=== PATIENT | female | born 1940 | race Caucasian/White ===

== ENCOUNTER 2016-12-22 13:18 | Emergency (ER) | payer MEDICARE ==
--- NOTE | 2016-12-22 13:41 | ER Document Report ---
ED Medical Screen (RME) - General Stated Complaint: LEG PAIN Notes: 76 yo female c/o pain, swelling and warmth to left medial upper thigh progressively worsening over past week. interfering with walking and sleeping. + hx/o DVT. reports some clotting abnormality. no chest pain or shortness of breath. no recent trauma, no recent travel, no recent surgery. discussed with Dr Amin. recommended D Dimer and Doppler TRAVEL OUTSIDE OF THE [place] IN LAST 30 DAYS: No - Related Data Allergies/Adverse Reactions: No Known Allergies Allergy (Unverified 12/22/16 13:34) Physical Exam - Vital signs Vitals: Temp Pulse Resp BP Pulse Ox 98.0 F 79 18 182/91 H 94 12/22/16 13:30 12/22/16 13:30 12/22/16 13:30 12/22/16 13:30 12/22/16 13:30 Course - Vital Signs Vital signs: Temp Pulse Resp BP Pulse Ox 98.0 F 79 18 182/91 H 94 12/22/16 13:30 12/22/16 13:30 12/22/16 13:30 12/22/16 13:30 12/22/16 13:30
[2016-12-22 13:58] LABS: ABSOLUTE BASOPHILS # (AUTO) 0.1 10^3/uL (0.0-0.2); ABSOLUTE EOSINOPHILS # (AUTO) 0.3 10^3/uL (0.0-0.6); ABSOLUTE MONOCYTES (AUTO) 0.6 10^3/uL (0.1-1.4); ABSOLUTE NEUT (AUTO) 3.4 10^3/uL (1.7-8.2); BASOPHILS % (AUTO) 0.8 % (0-2); EOSINOPHILS % (AUTO) 4.1 % (0-6); HEMATOCRIT 44.5 % (36.0-47.0); HEMOGLOBIN 14.8 g/dL (12.0-15.5); HGB HCT DIFFERENCE -0.1; LYMPHOCYTES % (AUTO) 41.1 % (13-45); MEAN CORPUSCULAR HGB CONC 33.3 g/dL (32.0-36.0); MEAN CORPUSCULAR VOLUME 90 fl (80-97); MONOCYTES % (AUTO) 8.5 % (3-13); RED BLOOD COUNT 4.96 10^6/uL (3.72-5.28); RED CELL DISTRIBUTION WIDTH 12.8 % (11.5-14.0); SEGMENTED NEUTROPHILS % (AUTO) 45.5 % (42-78); WHITE BLOOD COUNT 7.4 10^3/uL (4.0-10.5)
[2016-12-22 14:02] LABS: APPEARANCE,URINE SLIGHTLY-CLOUDY; BILIRUBIN,URINE NEGATIVE (NEGATIVE); GLUCOSE, URINE NEGATIVE (NEGATIVE); KETONES,URINE NEGATIVE (NEGATIVE); LEUKOCYTE ESTERASE,URINE NEGATIVE (NEGATIVE); NITRITE,URINE NEGATIVE (NEGATIVE); PROTEIN,URINE NEGATIVE (NEGATIVE); URINE SPECIFIC GRAVITY 1.006; UROBILINOGEN,URINE NEGATIVE mg/dL (<2.0)
[2016-12-22 14:03] LABS: PROTHROMBIN TIME 12.8 SEC (11.4-15.4)
[2016-12-22 14:06] LABS: D-DIMER 0.88 ug/mL (0.00-0.50)
[2016-12-22 14:10] LABS: ALANINE AMINOTRANSFERASE 23 U/L (9-52); ALBUMIN 4.3 g/dL (3.5-5.0); ALKALINE PHOSPHATASE 84 U/L (38-126); ANION GAP 10 (5-19); ASPARTATE AMINO TRANSFERASE 22 U/L (14-36); BILIRUBIN,TOTAL 0.8 mg/dL (0.2-1.3); BLOOD UREA NITROGEN 24 mg/dL (7-20); CARBON DIOXIDE 27 mmol/L (22-30); CHLORIDE 105 mmol/L (98-107); CREATININE RESULT 0.69 mg/dL (0.52-1.25); GLUCOSE 98 mg/dL (75-110); POTASSIUM 4.4 mmol/L (3.6-5.0); SODIUM 142.1 mmol/L (137-145); TOTAL PROTEIN 7.1 g/dL (6.3-8.2)
--- NOTE | 2016-12-22 16:42 | ER Document Report ---
ED Extremity Problem, Lower - General Chief Complaint: Leg Pain Stated Complaint: LEG PAIN Time seen by provider: 16:36 Mode of Arrival: Ambulatory Information source: Patient Notes: This is a 76-year-old female with a history of DVT (1977), hypoglycemia. Patient presents with left lower extremity pain. Patient states she's been having pain on the anterior and posterior left thigh for the past several days which is been progressively getting worse. Patient's granddaughter does state that the patient first started complaining this past summer of left lower extremity pain. She has had ultrasounds in the past (last one here in January 2016) which is showed no recurrence of deep vein clot. Patient denies any back pain. Patient denies any urinary or fecal incontinence. Patient denies any motor weakness. X-rays in January 2016 also showed bilateral hip arthritis. TRAVEL OUTSIDE OF THE [place] IN LAST 30 DAYS: No - HPI Patient complains to provider of: Pain Location: Thigh Occurred: Last week Where: Home Onset/Duration: Gradual Quality of pain: Dull Severity: Moderate Pain Level: 3 Context: denies: Barefoot, Burn, Crush, Direct blow, Fell, Laceration, Prolonged pressure on ext, Recent immobilization, Recent surgery, Recent travel , Stubbed, Twisted, Wearing shoes, Other Recent injury: No Associated symptoms: denies: Fever, Seizure, Short of breath, Sweaty Exacerbated by: Movement Relieved by: Rest - Related Data Allergies/Adverse Reactions: No Known Allergies Allergy (Unverified 12/22/16 13:34) Past Medical History - General Information source: Patient - Social History Smoking Status: Never Smoker Chew tobacco use (# tins/day): No Frequency of alcohol use: None Drug Abuse: None Lives with: Family Family History: Reviewed & Not Pertinent Patient has suicidal ideation: No Patient has homicidal ideation: No - Past Medical History Cardiac Medical History: Reports: Hx DVT - History of DVT in the left lower extremity in 1977 Pulmonary Medical History: Reports: None EENT Medical History: Reports: None Neurological Medical History: Reports: None Endocrine Medical History: Reports: None Renal/ Medical History: Denies: Hx Peritoneal Dialysis Malignancy Medical History: Reports: None GI Medical History: Reports: None Musculoskeltal Medical History: Reports Hx Arthritis, Reports Other - Patient does have significant bilateral hip arthritis noted on hip x-rays in the past. Skin Medical History: Reports None Psychiatric Medical History: Reports: None Traumatic Medical History: Reports: Other - History of L2 fracture after fall 4 years ago. Infectious Medical History: Reports: None Past Surgical History: Reports: Hx Hysterectomy, Hx Tonsillectomy - Immunizations Hx Diphtheria, Pertussis, Tetanus Vaccination: Yes Review of Systems - Review of Systems Constitutional: denies: Chills, Fever EENT: No symptoms reported Cardiovascular: No symptoms reported. denies: Chest pain, Syncope, Edema Respiratory: No symptoms reported. denies: Hemoptysis, Short of breath, Wheezing Gastrointestinal: No symptoms reported Genitourinary: No symptoms reported Female Genitourinary: No symptoms reported Musculoskeletal: See HPI Skin: No symptoms reported Hematologic/Lymphatic: No symptoms reported Neurological/Psychological: No symptoms reported Physical Exam - Vital signs Vitals: Temp Pulse Resp BP Pulse Ox 98.0 F 79 18 182/91 H 94 12/22/16 13:30 12/22/16 13:30 12/22/16 13:30 12/22/16 13:30 12/22/16 13:30 Notes: Physical exam: GENERAL: 76-year-old female, alert and oriented 3, no acute distress. HEAD: Atraumatic, normocephalic. EYES: Pupils equal round and reactive to light, extraocular movements intact, sclera anicteric, conjunctiva are normal. ENT: TMs normal, nares patent, oropharynx clear without exudates. Moist mucous membranes. NECK: Normal range of motion, supple without lymphadenopathy or JVD. LUNGS: Breath sounds clear to auscultation bilaterally and equal. No wheezes rales or rhonchi. HEART: Regular rate and rhythm without murmurs, rubs or gallops. ABDOMEN: Soft, normoactive bowel sounds. No tenderness to palpation. No guarding, no rebound. No masses appreciated. EXTREMITIES: Normal range of motion, no pitting or edema. No clubbing or cyanosis. No popliteal swelling on the left side. The skin has no erythema or tenderness to palpation. The distal cap refill to the toes are good. The extremity is warm and appears well perfused. There is a good dorsal pedal pulse bilaterally. NEUROLOGICAL: Cranial nerves II through XII grossly intact. Normal speech, normal gait. PSYCH: Normal mood, normal affect. SKIN: Warm, Dry, normal turgor, no rashes or lesions noted. Course - Vital Signs Vital signs: Temp Pulse Resp BP Pulse Ox 98.2 F 74 16 135/79 H 92 12/22/16 16:47 12/22/16 16:47 12/22/16 16:47 12/22/16 16:47 12/22/16 16:47 - Laboratory Result Diagrams: 12/22/16 13:40 12/22/16 13:40 Laboratory results interpreted by me: 12/22/16 12/22/16 12/22/16 13:20 13:40 13:40 D-Dimer 0.88 H BUN 24 H Urine Ascorbic Acid 40 H - Diagnostic Test Radiology reviewed: Image reviewed, Reports reviewed - Lower venous Doppler shows no evidence of DVT Discharge - Discharge Clinical Impression: lower extremity pain. Condition: Stable Disposition: HOME, SELF-CARE Instructions: Oral Narcotic Medication ([facility]) Additional Instructions: Recommendations: As discussed: The ultrasound today was read by Dr. Campos Florez and there was no evidence of deep vein clots. The plan would be to follow-up with Dr. Salmon tomorrow as planned. Bring a copy of today's labs with you when you go. It is recommended, that she have the ultrasound repeated in one week. Return to the emergency room at once for any chest pain or shortness of breath. He should have your blood pressure rechecked as well. Continue with your other medicines including the Naprosyn daily. Take the Percocet as needed. See the narcotic instruction sheet. Turn to the ER if he develop worsening pain, or any concerns that the pain is getting worse, any problems urinating or any problems with numbness. Prescriptions: Oxycodone HCl/Acetaminophen [Percocet 5-325 mg Tablet] 1 - 2 tab PO ASDIR PRN # 25 tablet PRN Reason: Referrals: FANNIE SALMON MD [Primary Care Provider] - Follow up as needed
[2016-12-22 16:51] VITALS: BP 135/79
--- NOTE | 2016-12-22 18:51 | XCELERA REPORT ---
[address] [address] Lower Extremity Venous Evaluation Name: ANDREW FRANCISCO Age: 76 yrs Gender: Female : 1940 Patient Status: Preadmit Patient Location: ER Study Date: 12/22/2016 03:05 PM Procedure: Color flow and duplex imaging of the veins of the left lower extremity as well as the right Common Femoral vein. Reason For Study: pain left medial upper thigh, + hx/o DVT Ordering Physician: BETHEL HA Performed By: Kenzie España Right Sided Venous Evaluation The right common femoral vein is fully compressible. Spontaneous and phasic flow is present in the right common femoral vein. Left Sided Venous Evaluation Normal vessel filling wall to wall, compression and augmentation as well as Colour flow down to the infrageniculate veins. Critical Findings Called in to the ER. Interpretation Summary No duplex evidence of DVT or obstruction in the left lower extremity nor in the right Common Femoral vein. : BETHEL HA > Kostas Florez
== END 2016-12-22 16:51 | disposition home or self-care (01) ==
LOC: ER 13:18
DX: M79.605 Pain in left leg (principal)
CPT/HCPCS: 36415; 80053; 81001; 85025; 85379; 85610; 93971; 99283

== ENCOUNTER → 2016-12-23 | Outpatient (CLI) | payer MEDICARE | LOC: OD 10:42 | PROVIDERS: ATTEND Family Medicine | DX: M79.605 Pain in left leg (principal) | CPT/HCPCS: 72100 ==

== ENCOUNTER → 2016-12-29 | Outpatient (CLI) | payer MEDICARE | LOC: SP 12:45 | PROVIDERS: ATTEND Family Medicine | DX: M79.605 Pain in left leg (principal); Z53.9 Procedure and treatment not carried out, unspecified reason ==

== ENCOUNTER → 2017-03-14 | Outpatient (CLI) | payer MEDICARE | LOC: WI 12:56 | PROVIDERS: ATTEND Family Medicine | DX: M81.0 Age-related osteoporosis without current pathological fracture (principal) | CPT/HCPCS: 77080 ==

== ENCOUNTER 2018-03-01 08:55 | Emergency (ER) | payer MEDICARE ==
[2018-03-01] MEDS ORDERED: LIDOCAINE 5% (700 MG) TRANSDERMAL ADH..PATCH TP ONE (09:52)
--- NOTE | 2018-03-01 10:41 | RADIOLOGY REPORT (SQ) ---
EXAM DESCRIPTION: L SPINE WHOLE COMPLETED DATE/TIME: 03/01/2018 10:27 am REASON FOR STUDY: back pain COMPARISON: 12/23/2016 NUMBER OF VIEWS: Five views including obliques. TECHNIQUE: AP, lateral, oblique, and sacral radiographic images acquired of the lumbar spine. LIMITATIONS: None. FINDINGS: MINERALIZATION: Normal. SEGMENTATION: Normal. No transitional anatomy. ALIGNMENT: Stable slight anterolisthesis L4-5. VERTEBRAE: Stable old compression L1, 50% loss of height anteriorly. DISCS: Multilevel disc space narrowing with osteophytes. POSTERIOR ELEMENTS: Pedicles and facets are intact. No pars defect or posterior arch defects. Facet arthropathy is present. HARDWARE: None in the spine. PARASPINAL SOFT TISSUES: Normal. PELVIS: Intact as visualized. No fractures or worrisome bone lesions. SI joints intact. OTHER: No other significant finding. IMPRESSION: Extensive arthritic changes lumbar spine. Stable old compression L1 and slight anterolisthesis L4-5. TECHNICAL DOCUMENTATION: JOB ID: [id number] [employer]- All Rights Reserved Reading location - IP/workstation name: [email or web address]
[2018-03-01 10:55] LABS: APPEARANCE,URINE SLIGHTLY-CLOUDY; BILIRUBIN,URINE NEGATIVE (NEGATIVE); COLOR,URINE YELLOW; GLUCOSE, URINE NEGATIVE (NEGATIVE); KETONES,URINE NEGATIVE (NEGATIVE); LEUKOCYTE ESTERASE,URINE NEGATIVE (NEGATIVE); NITRITE,URINE NEGATIVE (NEGATIVE); PROTEIN,URINE NEGATIVE (NEGATIVE); UROBILINOGEN,URINE NEGATIVE mg/dL (<2.0)
--- NOTE | 2018-03-01 11:07 | ER Document Report ---
ED General - General Chief Complaint: Back Pain Stated Complaint: BACK PAIN Time Seen by Provider: 03/01/18 09:36 TRAVEL OUTSIDE OF THE [place] IN LAST 30 DAYS: No - HPI Patient complains to provider of: Back pain Notes: Patient coming in for evaluation of back pain. Patient has chronic back pain has been receiving cortisone injections. Patient states mostly her pains on the right side of the spine of her back. Patient states that she has been giving injections on the left side mostly recently. Patient denies any acute trauma denies any fever chills nausea vomiting diarrhea states pain is better with heat. Denies any fevers chills nausea vomiting diarrhea dysuria. - Related Data Allergies/Adverse Reactions: Sulfa (Sulfonamide Antibiotics) Allergy (Verified 03/01/18 09:15) Past Medical History - Social History Smoking Status: Never Smoker Chew tobacco use (# tins/day): No Frequency of alcohol use: None Drug Abuse: None Family History: Reviewed & Not Pertinent Patient has suicidal ideation: No Patient has homicidal ideation: No - Past Medical History Cardiac Medical History: Reports: Hx DVT - History of DVT in the left lower extremity in 1977 Renal/ Medical History: Denies: Hx Peritoneal Dialysis Musculoskeltal Medical History: Reports Hx Arthritis Past Surgical History: Reports: Hx Hysterectomy, Hx Tonsillectomy - Immunizations Hx Diphtheria, Pertussis, Tetanus Vaccination: Yes Review of Systems - Review of Systems Constitutional: No symptoms reported EENT: No symptoms reported Cardiovascular: No symptoms reported Respiratory: No symptoms reported Gastrointestinal: No symptoms reported Genitourinary: No symptoms reported Female Genitourinary: No symptoms reported Musculoskeletal: Back pain Skin: No symptoms reported Hematologic/Lymphatic: No symptoms reported Neurological/Psychological: No symptoms reported -: Yes All other systems reviewed and negative Physical Exam - Vital signs Vitals: Temp Pulse Resp BP Pulse Ox 98.4 F 87 18 141/73 H 94 03/01/18 09:02 03/01/18 09:02 03/01/18 09:02 03/01/18 09:02 03/01/18 09:02 Interpretation: Normal - General General appearance: Appears well, Alert - HEENT Head: Normocephalic, Atraumatic Eyes: Normal Pupils: PERRL - Respiratory Respiratory status: No respiratory distress Chest status: Nontender Breath sounds: Normal Chest palpation: Normal - Cardiovascular Rhythm: Regular Heart sounds: Normal auscultation Murmur: No - Abdominal Inspection: Normal Distension: No distension Bowel sounds: Normal Tenderness: Nontender Organomegaly: No organomegaly - Back Back: Normal, Tender - Tenderness to the right paraspinal region - Extremities General upper extremity: Normal inspection, Nontender, Normal color, Normal ROM , Normal temperature General lower extremity: Normal inspection, Nontender, Normal color, Normal ROM , Normal temperature, Normal weight bearing. No: Salvador's sign - Neurological Neuro grossly intact: Yes Cognition: Normal Orientation: AAOx4 Alan Coma Scale Eye Opening: Spontaneous [place] Coma Scale Verbal: Oriented [place] Coma Scale Motor: Obeys Commands Eudora Coma Scale Total: 15 Speech: Normal Motor strength normal: LUE, RUE, LLE, RLE Sensory: Normal - Psychological Associated symptoms: Normal affect, Normal mood - Skin Skin Temperature: Warm Skin Moisture: Dry Skin Color: Normal Course - Re-evaluation Re-evalutation: 03/01/18 11:08 The patient presents with low back pain without signs of spinal cord compression , cauda equina syndrome, infection, aneurysm, or other serious etiology. The patient is neurologically intact. Given the extremely low risk of these diagnoses further testing and evaluation for these possibilities does not appear to be indicated at this time. The patient has been instructed to return if the symptoms worsen or change in any way. More likely muscle skeletal patient states most of her injections be on the left think patient more likely is ever compensating using more paraspinal muscles on the right. Patient will be given pain control discharged home. - Vital Signs Vital signs: Temp Pulse Resp BP Pulse Ox 98.4 F 87 18 141/73 H 94 03/01/18 09:02 03/01/18 09:02 03/01/18 09:02 03/01/18 09:02 03/01/18 09:02 Discharge - Discharge Clinical Impression: Acute exacerbation of chronic low back pain Condition: Good Disposition: HOME, SELF-CARE Instructions: Low Back Pain ([facility]), Oral Narcotic Medication ([facility]) Additional Instructions: Your x-ray today does not show any acute pathology. He did have significant diffuse arthritis along her spine and also a old compression fracture. Again nothing looks to be new on her x-ray. Urinalysis does not show any signs of urinary tract infection. I do believe the pain is more likely from compensation on the right side is that you have been receiving shots of the left. Would recommend following up with her ornamental painter. I will give you a prescription for some tramadol pain medication he may also take Tylenol and Motrin for pain relief return to ER symptoms worsen. Prescriptions: Tramadol HCl [Ultram 50 mg Tablet] 50 mg PO ASDIR PRN #20 tablet PRN Reason: Referrals: FANNIE YU MD [Primary Care Provider] - Follow up as needed
[2018-03-01 11:28] VITALS: BP 139/73
== END 2018-03-01 11:28 | disposition home or self-care (01) ==
LOC: ER 08:55
DX: M54.9 Dorsalgia, unspecified (principal); G89.29 Other chronic pain
CPT/HCPCS: 72110; 81001; 99283

== ENCOUNTER → 2018-05-10 | Outpatient (CLI) | payer MEDICARE ==
--- NOTE | 2018-05-10 16:03 | RADIOLOGY REPORT (SQ) ---
EXAM DESCRIPTION: CAROTID DOPPLER COMPLETED DATE/TIME: 05/10/2018 3:52 pm REASON FOR STUDY: DIZZINESS R42 DIZZINESS AND GIDDINESS COMPARISON: None. TECHNIQUE: Grayscale ultrasound, Doppler velocity and spectra, and color Doppler images acquired of the extra-cranial carotid and vertebral arteries. Images stored on PACS. LIMITATIONS: None. FINDINGS: RIGHT CAROTID CCA Velocities: Within normal limits. ICA Velocities Peak systolic 0.61 m/s. End diastolic 0.20 m/s. Proximal ICA/CCA peak systolic ratio 0.7. Spectra normal. No significant plaque. LEFT CAROTID CCA Velocities: Within normal limits. ICA Velocities Peak systolic 0.47 m/s. End diastolic 0.17 m/s. Proximal ICA/CCA peak systolic ratio 1.0. Spectra normal. No significant plaque. VERTEBRAL ARTERIES: Antegrade flow. Normal waveforms. SUBCLAVIAN ARTERIES: No finding. OTHER: No other significant finding. IMPRESSION: NO HEMODYNAMICALLY SIGNIFICANT STENOSIS. COMMENT: Quality ID #[id number]: Velocity criteria are extrapolated from the diameter data as defined by t he Society of Radiologists in Ultrasound Consensus Conference. Radiology 2003: 229; 340-346. TECHNICAL DOCUMENTATION: JOB ID: [id number] [employer]- All Rights Reserved Reading location - IP/workstation name: [email or web address]
== END ==
LOC: SP 12:44
PROVIDERS: ATTEND Family Medicine
DX: R42 Dizziness and giddiness (principal)
CPT/HCPCS: 93880

== ENCOUNTER → 2018-05-30 | Outpatient (CLI) | payer MEDICARE ==
--- NOTE | 2018-05-30 10:30 | RADIOLOGY REPORT (SQ) ---
EXAM DESCRIPTION: CT ABD/PELVIS NO ORAL OR IV COMPLETED DATE/TIME: 05/30/2018 9:43 am REASON FOR STUDY: LOWER ABDOMINAL PAIN R10.30 LOWER ABDOMINAL PAIN, UNSPECIFIED COMPARISON: None. TECHNIQUE: CT scan of the abdomen and pelvis performed without intravenous or oral contrast. Images reviewed with lung, soft tissue, and bone windows. Reconstructed coronal and sagittal MPR images revi ewed. All images stored on PACS. All CT scanners at this facility use dose modulation, iterative reconstruction, and/or weight based d osing when appropriate to reduce radiation dose to as low as reasonably achievable (ALARA). [facility]: Dose Right [facility]: CareDose [facility]: Dose Right [facility]: Teradose 4D [facility]: Micronotes RADIATION DOSE: CT Rad equipment meets quality standard of care and radiation dose reduction techniq ues were employed. CTDIvol: 5.0 mGy. DLP: 230 mGy-cm.mGy. LIMITATIONS: None. FINDINGS: LOWER CHEST: No significant findings. No nodules or infiltrates. NON-CONTRASTED LIVER, SPLEEN, ADRENALS: Evaluation limited by lack of IV contrast. No identified sign ificant masses. PANCREAS: No masses. No peripancreatic inflammatory changes. GALLBLADDER: No identified stones by CT criteria. No inflammatory changes to suggest cholecystitis. RIGHT KIDNEY AND URETER: No suspicious masses. Assessment limited by lack of IV contrast. No signif icant calcifications. No hydronephrosis or hydroureter. LEFT KIDNEY AND URETER: No suspicious masses. Assessment limited by lack of IV contrast. No signifi cant calcifications. No hydronephrosis or hydroureter. AORTA AND RETROPERITONEUM: No aneurysm. There is some ectasia of the abdominal aorta with vascular c alcifications. No retroperitoneal masses or adenopathy. BOWEL AND PERITONEAL CAVITY: No obvious masses or inflammatory changes. No free fluid. APPENDIX: Normal. PELVIS, BLADDER, AND ABDOMINAL WALL:No abnormal masses. No free fluid. Bladder normal. BONES: Degenerative changes are identified with grade 1 anterolisthesis of L4 in relation to L 5. Th ere is approximately 75% compression of the L1 vertebra and compression of the superior endplate of t he L2 vertebra which are age indeterminate OTHER: No other significant finding. IMPRESSION: NO SIGNIFICANT OR ACUTE PROCESS IN THE ABDOMEN OR PELVIS. COMMENT: Quality ID # [id number]: Final reports with documentation of one or more dose reduction techniques (e.g., Automated exposure control, adjustment of the mA and/or kV according to patient size, use of iterative reconstruction technique) TECHNICAL DOCUMENTATION: JOB ID: [id number] [email or web address]- All Rights Reserved Reading location - IP/workstation name: [email or web address]
== END ==
LOC: RAD 09:24
PROVIDERS: ATTEND Family Medicine
DX: R10.30 Lower abdominal pain, unspecified (principal)
CPT/HCPCS: 74176

== ENCOUNTER → 2018-06-28 | Outpatient (CLI) | payer MEDICARE ==
--- NOTE | 2018-06-29 08:41 | RADIOLOGY REPORT (SQ) ---
EXAM DESCRIPTION: MRI LUMBAR SPINE WITHOUT COMPLETED DATE/TIME: 06/28/2018 5:08 pm REASON FOR STUDY: SPINAL STENOSIS, LUMBAR REGION WITH NEUROGENIC CLAUDICATION M48.062 SPINAL STENOS IS, LUMBAR REGION WITH NEUROGENIC KASANDRA COMPARISON: CT abdomen pelvis 05/30/2018 Lumbar spine plain films 03/01/2018, 12/23/2016 TECHNIQUE: Sagittal and Axial imaging includes T1, T2, STIR and gradient echo sequences. Coronal T2/ HASTE imaging. LIMITATIONS: None. FINDINGS: VISUALIZED UPPER ABDOMEN: Benign left lower pole kidney parapelvic cysts. SEGMENTATION: No transitional anatomy. The lowest well-developed disc space is labeled L5-S1. ALIGNMENT: Mild grade 1 anterolisthesis of L4 over L5 VERTEBRAE: Chronic appearing 50% anterior wedge compression of L1 without marrow edema. BONE MARROW: Normal. No marrow replacement or reactive changes. DISC SIGNAL: Diffuse decreased T2 weighted intervertebral disc signal. POSTERIOR ELEMENTS: Generally intact. No pars defect evident. HARDWARE: None in the spine. CORD AND CONUS: Normal in size and signal intensity. Conus at the L1 level. SOFT TISSUES: No aortic aneurysm seen. No bulky retroperitoneal adenopathy or mass. No paraspinal mas s or fluid. T11-12: Mild bilateral facet hypertrophy borderline central canal narrowing and mild bilateral adrianna inal narrowing. T12-L1: Unremarkable L1-L2: Mild bilateral facet hypertrophy. Minimal posterior disc bulging. Borderline central canal n arrowing. Mild bilateral foraminal narrowing. L2-L3: Moderate bilateral facet hypertrophy. No central or foraminal encroachment. L3-L4: Mild diffuse posterior disc bulge, bulky bilateral facet hypertrophy. Borderline central doug l narrowing. Very mild bilateral inferior foraminal narrowing without exiting L3 nerve root impingem ent. L4-L5: Grade 1 anterolisthesis of L4 over L5 is present with mild posterior diffuse disc bulge and ve ry bulky bilateral facet and ligament hypertrophy. Mild central canal narrowing with flattening of t he thecal sac into a triangular shape. No significant foraminal stenosis. L5-S1: Minimal posterior disc bulging, mild bilateral facet hypertrophy. No central or foraminal enc roachment. SACRUM: Visualized upper sacrum intact. OTHER: No other significant findings. IMPRESSION: Chronic 50% L1 compression deformity Degenerative grade 1 anterolisthesis at L4-5 with mild central canal narrowing TECHNICAL DOCUMENTATION: JOB ID: [id number]- All Rights Reserved Reading location - IP/workstation name: [email or web address]
== END ==
LOC: RAD 16:18
PROVIDERS: ATTEND Physician Assistant
DX: M48.062 Spinal stenosis, lumbar region with neurogenic claudication (principal)
CPT/HCPCS: 72148

== ENCOUNTER 2018-08-01 05:49 | Day surgery (SDC) | payer MEDICARE ==
[2018-07-28 12:19] LABS: HEMATOCRIT 42.6 % (36.0-47.0); HEMOGLOBIN 14.4 g/dL (12.0-15.5); MEAN CORPUSCULAR HGB CONC 33.8 g/dL (32.0-36.0); MEAN CORPUSCULAR VOLUME 92 fl (80-97); PLATELET COUNT 322 10^3/uL (150-450); RED BLOOD COUNT 4.64 10^6/uL (3.72-5.28); RED CELL DISTRIBUTION WIDTH 13.4 % (11.5-14.0)
[2018-07-28 12:46] LABS: ANION GAP 9 (5-19); BLOOD UREA NITROGEN 25 mg/dL (7-20); CALCIUM 9.9 mg/dL (8.4-10.2); CARBON DIOXIDE 27 mmol/L (22-30); CHLORIDE 104 mmol/L (98-107); GLUCOSE 96 mg/dL (75-110); POTASSIUM 4.4 mmol/L (3.6-5.0); SODIUM 139.9 mmol/L (137-145)
--- NOTE | 2018-07-28 20:53 | EKG REPORT ---
SEVERITY:- ABNORMAL ECG - SINUS RHYTHM PROBABLE LEFT ATRIAL ABNORMALITY LEFT ANTERIOR FASCICULAR BLOCK : Confirmed by: Nia West MD 28-Jul-2018 20:53:07
[~2018-08-01 05:49] MED LIST: CEFAZOLIN 1 GM/D5W RTU 1 GM/50 ML RTUPB IV ONE; CEFAZOLIN 1 GM/D5W RTU 1 GM/50 ML RTUPB IV PRN; LACTATED RINGERS 1000 ML IV PRN; LIDOCAINE 0.5% INJ-PF (5 MG/ML) 50 ML SDV SUBCUT PRN
[2018-08-01 06:30] LABS: HEMOGLOBIN 15.4 g/dL (12.0-15.5); MEAN CORPUSCULAR HEMOGLOBIN 31.2 pg (27.0-33.4); MEAN CORPUSCULAR HGB CONC 34.1 g/dL (32.0-36.0); MEAN CORPUSCULAR VOLUME 91 fl (80-97); PLATELET COUNT 326 10^3/uL (150-450); RED BLOOD COUNT 4.93 10^6/uL (3.72-5.28); RED CELL DISTRIBUTION WIDTH 13.3 % (11.5-14.0); WHITE BLOOD COUNT 11.6 10^3/uL (4.0-10.5)
[2018-08-01 06:41] LABS: APPEARANCE,URINE CLEAR; BILIRUBIN,URINE NEGATIVE (NEGATIVE); COLOR,URINE STRAW; GLUCOSE, URINE NEGATIVE (NEGATIVE); KETONES,URINE NEGATIVE (NEGATIVE); LEUKOCYTE ESTERASE,URINE NEGATIVE (NEGATIVE); NITRITE,URINE NEGATIVE (NEGATIVE); PROTEIN,URINE NEGATIVE (NEGATIVE); URINE SPECIFIC GRAVITY 1.011; UROBILINOGEN,URINE NEGATIVE mg/dL (<2.0)
[2018-08-01 06:41] LABS: INTERNATIONAL RATION (INR) 0.83; PARTIAL THROMBOPLASTIN TIME 26.5 SEC (23.5-35.8); PROTHROMBIN TIME 11.8 SEC (11.4-15.4)
[2018-08-01] MEDS ORDERED: FENTANYL CITRATE INJ/PF 100 MCG/2 ML AMPUL ONE (06:42)
[2018-08-01] MEDS ORDERED: PROPOFOL INJ 200 MG/20 ML VIAL IV ONE (06:43)
[2018-08-01] MEDS ORDERED: MIDAZOLAM 2 MG/2 ML INJ ONE (06:43)
[2018-08-01] MEDS ORDERED: BUPIVACAINE HCL 0.25% /EPINEPHRINE INJ/PF 30 ML SDV ONE ×2 (07:43→07:59)
[2018-08-01] MEDS ORDERED: TRIAMCINOLONE ACETONIDE INJ 40 MG/1 ML VIAL ONE (07:43)
[2018-08-01] MEDS ORDERED: LIDOCAINE 1% INJ-PF (10 MG/ML) 30 ML SDV ONE ×2 (07:43→07:59)
[2018-08-01] MEDS ORDERED: CEFAZOLIN 1 GM/D5W RTU 1 GM/50 ML RTUPB IV ONE (08:11)
[2018-08-01] MEDS ORDERED: FAMOTIDINE INJ/PF 20 MG/2 ML SDV IV ONE (08:13)
[2018-08-01] MEDS ORDERED: MEPERIDINE HCL/PF INJ 25 MG/1 ML DISP.SYRIN IV PRN (08:44)
[2018-08-01] MEDS ORDERED: ONDANSETRON HCL INJ/PF 4 MG/2 ML SDV IV PRN (08:44)
[2018-08-01] MEDS ORDERED: FENTANYL CITRATE INJ/PF 100 MCG/2 ML AMPUL IV PRN ×2 (08:44)
[2018-08-01] MEDS ORDERED: PROMETHAZINE HCL INJ 25 MG/1 ML VIAL IV PRN (08:44)
[2018-08-01] MEDS ORDERED: DIPHENHYDRAMINE HCL 50 MG/ML VIAL IV PRN (08:44)
[2018-08-01] MEDS ORDERED: OXYCODONE-ACETAMINOPHEN 5-325 MG TABLET PO PRN ×2 (08:44→09:29)
[2018-08-01] MEDS ORDERED: CEFAZOLIN INJ 1 GM VIAL ONE (09:15)
[2018-08-01] MEDS ORDERED: ACETAMINOPHEN 1,000 MG/100 ML RTUPB IV ONE (09:32)
--- NOTE | 2018-08-01 10:13 | OPERATIVE REPORT E ---
Operative Report NAME: ANDREW FRANCISCO : 1940 AGE: 77Y DATE OF SURGERY: 08/01/2018 ROOM: PREOPERATIVE DIAGNOSIS: LUMBAR SPINAL STENOSIS WITH NEUROGENIC CLAUDICATION. POSTOPERATIVE DIAGNOSIS: LUMBAR SPINAL STENOSIS WITH NEUROGENIC CLAUDICATION. OPERATION: Spinal procedure at L4-5 with epidural steroid injection. SURGEON: YO ROBLES M.D. OVEN UNLOADER: None. ANESTHESIA: MAC COMPLICATIONS: None. PROCEDURE: After obtaining informed consent, advising the patient of the risks and benefits including serious neurological injury, allergy of contrast, bleeding, infection, paralysis, aggravation of pain, headache, infection, and , and further allergic reaction to the steroid. She was taken to the operating room and placed comfortably in the prone position after verbally consenting and writing a full informed consent. She was taken to the operating room and placed comfortably in the prone position. Monitors were applied per Anesthesia. She was assessed visually and verbally for comfort. She was then prepped with chlorhexidine followed by a sterile drape. Fluoroscopy was used to evaluate the spine and L4-5 target space was identified. Using an epidural needle, after anesthetizing with 1% lidocaine, to enter at the midline at L4-5 level. An epidurogram was performed with spread superiorly with minimal inferior spread and limitation of the L4-5 level. Landmarks were identified and suitable track was determined for placement of the MILD instrumentation. Beginning on the left side, a small incision was made after local anesthetic of 1% lidocaine was applied. This was repeated on the right side at the selected entrance level. The MILD instrumentation trocar was then advanced through the small incision down to the lamina of the L4-L5 level on the left. Multiple x-ray were taken, particularly the oblique and AP to ensure satisfactory midline and depth. A small amount of additional local anesthetic, 1% lidocaine 2 mL, was instilled through the trocar. The bone rongeur was then utilized for removal of the lamina and ligament at the level on the left in the superior and inferior regions. A tissue sculptor was then utilized for removing additional tissue. Improvement of the contrast spread was noted inferiorly. This procedure was then repeated on the right side as described above. Again, additional improvement in the contrast spread was noted even though there was some reduction and spread at the L3-4 level as visualized on the right. Overall again, additional improvement at the L4-5 level appears variable as shown resolving some of the spinal stenosis. The epidural needle with 80 mg of Kenalog was then inserted. All instruments removed. The region was cleaned, Steri-Strips were placed followed by sterile dressings. The patient was then taken to the PACU for further postoperative care and monitoring. DICTATING PHYSICIAN: YO ROBLES M.D. [id number] PHY#: [id number] ID: [id number] JOB#: [id number] ACCT: [id number] cc:YO ROBLES M.D. >
[2018-08-01 11:12] VITALS: BP 122/89
--- NOTE | 2018-08-01 12:08 | RADIOLOGY REPORT (SQ) ---
EXAM DESCRIPTION: NO CHG FLUORO; L SPINE 2 VIEWS COMPLETED DATE/TIME: 08/01/2018 11:05 am REASON FOR STUDY: MILD COMPARISON: MRI lumbar spine 06/28/2018, CT abdomen pelvis 05/30/2018 FLUOROSCOPY TIME: 7.5 minutes 28 digital radiographic Images saved to PACS LIMITATIONS: None. PROCEDURE: Intra procedural imaging and fluoro during pain management procedure performed by Dr. Barrett loya. FINDINGS: Intra procedural imaging and fluoro during pain management procedure performed by Dr. Jon er IMPRESSION: Intra procedural imaging and fluoro COMMENT: PQRS 6045F: Fluoroscopy time of the procedure is documented in the report. TECHNICAL DOCUMENTATION: JOB ID: [id number] [employer]- All Rights Reserved Reading location - IP/workstation name: [email or web address]
--- NOTE | 2018-08-01 12:08 | RADIOLOGY REPORT (SQ) ---
EXAM DESCRIPTION: NO CHG FLUORO; L SPINE 2 VIEWS COMPLETED DATE/TIME: 08/01/2018 11:05 am REASON FOR STUDY: MILD COMPARISON: MRI lumbar spine 06/28/2018, CT abdomen pelvis 05/30/2018 FLUOROSCOPY TIME: 7.5 minutes 28 digital radiographic Images saved to PACS LIMITATIONS: None. PROCEDURE: Intra procedural imaging and fluoro during pain management procedure performed by Dr. Barrett loya. FINDINGS: Intra procedural imaging and fluoro during pain management procedure performed by Dr. Jon er IMPRESSION: Intra procedural imaging and fluoro COMMENT: PQRS 6045F: Fluoroscopy time of the procedure is documented in the report. TECHNICAL DOCUMENTATION: JOB ID: [id number] [employer]- All Rights Reserved Reading location - IP/workstation name: [email or web address]
[2018-08-01] MEDS ORDERED: DEXAMETHASONE SOD PHOSPHATE INJ 4 MG/1 ML VIAL ONE (14:00)
== END 2018-08-01 11:05 | disposition home or self-care (01) ==
LOC: OROUT 05:49
PROVIDERS: ATTEND Student in an Organized Health Care Education/Training Program
DX: M48.062 Spinal stenosis, lumbar region with neurogenic claudication (principal); Z00.6 Encounter for examination for normal comparison and control in clinical research program; J45.20 Mild intermittent asthma, uncomplicated; Z79.01 Long term (current) use of anticoagulants; Z79.899 Other long term (current) drug therapy; Z88.2 Allergy status to sulfonamides; Z91.041 Radiographic dye allergy status; I69.844 Monoplegia of lower limb following other cerebrovascular disease affecting left non-dominant side
CPT/HCPCS: 93005; 36415 ×2; 85027 ×2; 85610; 85730; 80048; 81001; 72100; 93010; 0275T; Q9966; J2250; J3490 ×3; J0690 ×2; J1100; J3010; J2704; S0028; J0131; 630

== ENCOUNTER → 2018-10-25 | Outpatient (CLI) | payer MEDICARE ==
[2018-10-25 09:28] LABS: INTERNATIONAL RATION (INR) 2.96; PROTHROMBIN TIME 32.2 SEC (11.4-15.4)
[2018-10-25 09:29] LABS: PARTIAL THROMBOPLASTIN TIME 47.7 SEC (23.5-35.8)
== END ==
LOC: LAB 08:42
PROVIDERS: ATTEND Family Medicine
DX: I82.402 Acute embolism and thrombosis of unspecified deep veins of left lower extremity (principal)
CPT/HCPCS: 36415; 85610; 85730

== ENCOUNTER 2019-05-06 10:48 | Emergency (ER) | payer MEDICARE ==
[2019-05-06] MEDS ORDERED: FAMOTIDINE INJ/PF 20 MG/2 ML SDV IV ONE (11:03)
[2019-05-06] MEDS ORDERED: METHYLPREDNISOLONE INJ 125 MG/2 ML SDV IV ONE (11:03)
[2019-05-06] MEDS ORDERED: DIPHENHYDRAMINE HCL 50 MG/ML VIAL IV ONE (11:03)
--- NOTE | 2019-05-06 11:06 | ER Document Report ---
ED Medical Screen (RME) - General Chief Complaint: Allergic Reaction Stated Complaint: ALLERGIC REACTION Time Seen by Provider: 05/06/19 11:00 Primary Care Provider: FANNIE YU MD [Primary Care Provider] - Follow up as needed Mode of Arrival: Wheelchair Information source: Patient Notes: Patient presents with a request pain to her left hand and left ankle. Patient reports she was stung approximately half an hour ago. Left hand starting to swell red streaks going up her left arm. She reports the last time she was stung she could heart the walk. She denies she never had trouble breathing. She reports her arm swelled up so bad for 3 days and she was very weak. She reports she used to have EpiPen's but could no longer afford them. She figures it is cheaper to go to the emergency department then to buy an EpiPen. Patient is speaking in clear sentences good airway. I have greeted and performed a rapid initial assessment of this patient. A com prehensive ED assessment and evaluation of the patient, analysis of test results and completion of the medical decision making process will be conducted by additional ED providers. Dictation of this chart was performed using voice recognition software; therefore, there may be some unintended grammatical errors. TRAVEL OUTSIDE OF THE [place] IN LAST 30 DAYS: No - Related Data Allergies/Adverse Reactions: Iodinated Contrast- Oral and IV Dye Allergy (Verified 07/28/18 10:36) Sulfa (Sulfonamide Antibiotics) Allergy (Verified 07/28/18 10:36) wasps Allergy (Uncoded 05/06/19 10:48) Past Medical History - Past Medical History Cardiac Medical History: Reports: Hx Coronary Artery Disease - BORDERLINE HIGH CHOLESTEROL, Hx DVT - History of DVT in the left lower extremity in 1977 Denies: Hx Heart Attack, Hx Hypertension - ON MEDS D/T TIA Pulmonary Medical History: Denies: Hx Asthma, Hx Bronchitis, Hx COPD, Hx Pneumonia Neurological Medical History: Denies: Hx Cerebrovascular Accident, Hx Seizures Renal/ Medical History: Denies: Hx Peritoneal Dialysis Musculoskeltal Medical History: Reports Hx Arthritis Past Surgical History: Reports: Hx Hysterectomy, Hx Tonsillectomy - Immunizations Hx Diphtheria, Pertussis, Tetanus Vaccination: Yes - NOT UP-TO-DATE History of Influenza Vaccine for 07/2017 - 12/2017 Season: No Physical Exam - Vital signs Vitals: Temp Pulse Resp BP Pulse Ox 98.7 F 71 16 143/72 H 96 05/06/19 10:54 05/06/19 10:54 05/06/19 10:54 05/06/19 10:54 05/06/19 10:54 Course - Vital Signs Vital signs: Temp Pulse Resp BP Pulse Ox 98.7 F 71 16 143/72 H 96 05/06/19 10:54 05/06/19 10:54 05/06/19 10:54 05/06/19 10:54 05/06/19 10:54 Doctor's Discharge - Discharge Referrals: FANNIE YU MD [Primary Care Provider] - Follow up as needed
--- NOTE | 2019-05-06 12:00 | ER Document Report ---
ED General - General Chief Complaint: Allergic Reaction Stated Complaint: ALLERGIC REACTION Time Seen by Provider: 05/06/19 11:00 Primary Care Provider: FANNIE YU MD [ACTIVE STAFF] - Follow up as needed Mode of Arrival: Wheelchair TRAVEL OUTSIDE OF THE [place] IN LAST 30 DAYS: No - HPI Patient complains to provider of: wasp sting Notes: Patient presents with flossing to her left hand. Swelling. Patient has known allergy to wasps. Concerned with the swelling in her left hand and itching. Denies shortness of breath nausea vomiting or other symptoms. - Related Data Allergies/Adverse Reactions: Iodinated Contrast- Oral and IV Dye Allergy (Verified 07/28/18 10:36) Sulfa (Sulfonamide Antibiotics) Allergy (Verified 07/28/18 10:36) wasps Allergy (Uncoded 05/06/19 10:48) Past Medical History - General Information source: Patient - Social History Smoking Status: Never Smoker Family History: Reviewed & Not Pertinent Patient has suicidal ideation: No Patient has homicidal ideation: No - Past Medical History Cardiac Medical History: Reports: Hx Coronary Artery Disease - BORDERLINE HIGH CHOLESTEROL, Hx DVT - History of DVT in the left lower extremity in 1977 Denies: Hx Heart Attack, Hx Hypertension - ON MEDS D/T TIA Pulmonary Medical History: Denies: Hx Asthma, Hx Bronchitis, Hx COPD, Hx Pneumonia Neurological Medical History: Denies: Hx Cerebrovascular Accident, Hx Seizures Renal/ Medical History: Denies: Hx Peritoneal Dialysis Musculoskeletal Medical History: Reports Hx Arthritis Past Surgical History: Reports: Hx Hysterectomy, Hx Orthopedic Surgery - hip, Hx Tonsillectomy - Immunizations Hx Diphtheria, Pertussis, Tetanus Vaccination: Yes - NOT UP-TO-DATE Review of Systems - Review of Systems Notes: REVIEW OF SYSTEMS: CONSTITUTIONAL: -fevers, -chills EENT: -eye pain, -difficulty swallowing, -nasal congestion CARDIOVASCULAR: -chest pain, -syncope. RESPIRATORY: -cough, -SOB GASTROINTESTINAL: -abdominal pain, -nausea, -vomiting, -diarrhea GENITOURINARY: -dysuria, -hematuria MUSCULOSKELETAL: -back pain, -neck pain SKIN: mild swelling and itchying left hand HEMATOLOGIC: -easy bruising or bleeding. LYMPHATIC: -swollen, enlarged glands. NEUROLOGICAL: -altered mental status or loss of consciousness, -headache, - neurologic symptoms PSYCHIATRIC: -anxiety, -depression. ALL OTHER SYSTEMS REVIEWED AND NEGATIVE. Physical Exam - Vital signs Vitals: Temp Pulse Resp BP Pulse Ox 98.7 F 71 16 143/72 H 96 05/06/19 10:54 05/06/19 10:54 05/06/19 10:54 05/06/19 10:54 05/06/19 10:54 - Notes Notes: PHYSICAL EXAMINATION: GENERAL: Well-appearing, well-nourished and in no acute distress. HEAD: Atraumatic, normocephalic. EYES: Pupils equal round and reactive to light, extraocular movements intact, sclera anicteric, conjunctiva are normal. ENT: nares patent, oropharynx clear without exudates. Moist mucous membranes. NECK: Normal range of motion, supple without lymphadenopathy LUNGS: Breath sounds clear to auscultation bilaterally and equal. No wheezes rales or rhonchi. HEART: Regular rate and rhythm without murmurs ABDOMEN: Soft, nontender, normoactive bowel sounds. No guarding, no rebound. No masses appreciated. EXTREMITIES: Normal range of motion, no pitting or edema. No cyanosis. NEUROLOGICAL: Cranial nerves grossly intact. Normal speech, normal gait. Normal sensory and motor exams. PSYCH: Normal mood, normal affect. SKIN: swelling left hand, mild erythema Course - Re-evaluation Re-evalutation: 05/06/19 13:35 Well-appearing female no acute distress, no respiratory distress nausea vomiting or other symptoms. Given steroids, diphenhydramine and famotidine. Symptoms markedly improved. Patient be discharged home follow-up PCP. Given strict return precautions if anything should change please return - Vital Signs Vital signs: Temp Pulse Resp BP Pulse Ox 98.7 F 71 18 145/77 H 96 05/06/19 10:54 05/06/19 10:54 05/06/19 13:03 05/06/19 13:03 05/06/19 13:03 Discharge - Discharge Clinical Impression: Allergic reaction Qualifiers: Encounter type: initial encounter Qualified Code(s): T78.40XA - Allergy, unspecified, initial encounter Condition: Stable Disposition: HOME, SELF-CARE Instructions: Insect Sting ([facility]) Referrals: FANNIE YU MD [ACTIVE STAFF] - Follow up as needed
[2019-05-06] MEDS ORDERED: EPINEPHRINE INJ/PF 1 MG/1 ML AMPULE IM ONE (12:08)
[2019-05-06 13:48] VITALS: BP 139/76
== END 2019-05-06 13:50 | disposition home or self-care (01) ==
LOC: ER 10:48
DX: T78.40XA Allergy, unspecified, initial encounter (principal); M79.672 Pain in left foot; M79.89 Other specified soft tissue disorders
CPT/HCPCS: 99282; J1200; J2930; S0028

== ENCOUNTER 2020-10-28 10:54 | Emergency (ER) | payer MEDICARE ==
--- NOTE | 2020-10-28 11:00 | ER Document Report ---
ED Medical Screen (RME) - General Chief Complaint: Numbness of Face Stated Complaint: HAND NUMBNESS Time Seen by Provider: 10/28/20 10:55 Primary Care Provider: CANDELARIO AVERY FNP-C [Primary Care Provider] - Follow up as needed TRAVEL OUTSIDE OF THE [place] IN LAST 30 DAYS: No - HPI Notes: 10/28/20 10:57 I was asked to come to the [facility] to evaluate a 79-year-old female with a history of a CVA in 2018 who presents to the emergency room with left lip numbness that started this morning, she cannot give an approximate time along with having a syncopal event this morning. Patient reports she started having some left hand numbness and tingling 3 days ago. Patient reports she is on blood thinners, cannot recall the name. Denies any chest pain, shortness of breath, nausea, vo miting, diarrhea. Patient states that the numbness is getting progressively worse in her room mouth. Denies any fevers or chills. Stroke alert was called, charge nurse, Radha, notified at 1055. I have greeted and performed a rapid initial assessment of this patient. A comprehensive ED assessment and evaluation of the patient, analysis of test results and completion of the medical decision making process will be conducted by additional ED providers. PHYSICAL EXAMINATION: GENERAL: Well-appearing, well-nourished and in no acute distress. HEAD: Atraumatic, normocephalic. EYES: Pupils equal round extraocular movements intact, conjunctiva are normal. No visual defects of peripheral vision NECK: Normal range of motion CV: s1, s2 regular LUNGS: No respiratory distress Musculoskeletal: Normal range of motion. Deboner +2 bilaterally equally. NEUROLOGICAL: Normal speech, normal gait. Tongue midline. no drift or lag. Able to follow commands. SKIN: Warm, Dry, normal turgor, no rashes or lesions noted. The patient was evaluated during a global COVID-19 pandemic and that diagnosis was suspected/considered upon their initial presentation. Their evaluation, treatment and testing was consistent with current guidelines for patients who present with complaints or symptoms and may be related to COVID-19. - Related Data Allergies/Adverse Reactions: Iodinated Contrast Media Allergy (Verified 07/28/18 10:36) Sulfa (Sulfonamide Antibiotics) Allergy (Verified 07/28/18 10:36) wasps Allergy (Uncoded 05/06/19 10:48) Past Medical History - Past Medical History Cardiac Medical History: Reports: Hx Coronary Artery Disease - BORDERLINE HIGH CHOLESTEROL, Hx DVT - History of DVT in the left lower extremity in 1977 Denies: Hx Heart Attack, Hx Hypertension - ON MEDS D/T TIA Pulmonary Medical History: Denies: Hx Asthma, Hx Bronchitis, Hx COPD, Hx Pneumonia Neurological Medical History: Denies: Hx Cerebrovascular Accident, Hx Seizures Renal/ Medical History: Denies: Hx Peritoneal Dialysis Musculoskeltal Medical History: Reports Hx Arthritis Past Surgical History: Reports: Hx Hysterectomy, Hx Orthopedic Surgery - hip, Hx Tonsillectomy - Immunizations Hx Diphtheria, Pertussis, Tetanus Vaccination: Yes - NOT UP-TO-DATE Doctor's Discharge - Discharge Referrals: CANDELARIO AVERY FNP-C [Primary Care Provider] - Follow up as needed
--- NOTE | 2020-10-28 11:20 | RADIOLOGY REPORT (SQ) ---
EXAM DESCRIPTION: CT HEAD WITHOUT IMAGES COMPLETED DATE/TIME: 10/28/2020 8:04 am REASON FOR STUDY: facial numbness this morning, hx of CVA COMPARISON: None. TECHNIQUE: Axial images acquired through the brain without intravenous contrast. Images reviewed wi th bone, brain and subdural windows. Additional sagittal and coronal reconstructions were generated. Images stored on PACS. All CT scanners at this facility use dose modulation, iterative reconstruction, and/or weight based d osing when appropriate to reduce radiation dose to as low as reasonably achievable (ALARA). [facility]: Dose Right [facility]: CareDose [facility]: Dose Right [facility]: Teradose 4D [facility]: Left of the [employer] RADIATION DOSE: CT Rad equipment meets quality standard of care and radiation dose reduction techniq ues were employed. CTDIvol: 53.2 mGy. DLP: 964 mGy-cm. mGy. LIMITATIONS: None. FINDINGS: VENTRICLES: Prominent. CEREBRUM: No masses. No hemorrhage. No midline shift. Areas of low density in the white matter mos t likely due to chronic micro-vascular ischemic change. No evidence for acute infarction. CEREBELLUM: No masses. No hemorrhage. No alteration of density. No evidence for acute infarction. EXTRAAXIAL SPACES: Mild age-related involutional change. No fluid collections. No masses. ORBITS AND GLOBE: No intra- or extraconal masses. Normal contour of globe without masses. CALVARIUM: No fracture. PARANASAL SINUSES: No fluid or mucosal thickening. SOFT TISSUES: No mass or hematoma. OTHER: No other significant finding. IMPRESSION: MILD CHRONIC CHANGES OF ATROPHY AND MICROVASCULAR ISCHEMIA. NO ACUTE PROCESS. EVIDENCE OF ACUTE STROKE: NO. TECHNICAL DOCUMENTATION: JOB ID: [id number] Quality ID # [id number]: Final reports with documentation of one or more dose reduction techniques (e.g., Au tomated exposure control, adjustment of the mA and/or kV according to patient size, use of iterative reconstruction technique) 2010 [employer]- All Rights Reserved Reading location - IP/workstation name: [email or web address]
[2020-10-28 11:26] LABS: ABSOLUTE BASOPHILS # (AUTO) 0.1 10^3/uL (0.0-0.2); ABSOLUTE EOSINOPHILS # (AUTO) 0.3 10^3/uL (0.0-0.6); ABSOLUTE LYMPHOCYTES (AUTO) 2.8 10^3/uL (0.5-4.7); ABSOLUTE MONOCYTES (AUTO) 0.4 10^3/uL (0.1-1.4); ABSOLUTE NEUT (AUTO) 1.8 10^3/uL (1.7-8.2); EOSINOPHILS % (AUTO) 5.1 % (0-6); HEMATOCRIT 41.2 % (36.0-47.0); HEMOGLOBIN 13.9 g/dL (12.0-15.5); LYMPHOCYTES % (AUTO) 52.5 % (13-45); MEAN CORPUSCULAR HEMOGLOBIN 30.3 pg (27.0-33.4); MEAN CORPUSCULAR HGB CONC 33.9 g/dL (32.0-36.0); MEAN CORPUSCULAR VOLUME 89 fl (80-97); MONOCYTES % (AUTO) 8.2 % (3-13); PLATELET COUNT 254 10^3/uL (150-450); RED BLOOD COUNT 4.61 10^6/uL (3.72-5.28); RED CELL DISTRIBUTION WIDTH 12.9 % (11.5-14.0); SEGMENTED NEUTROPHILS % (AUTO) 33.2 % (42-78); TOTAL CELLS COUNTED % (AUTO) 100 %; WHITE BLOOD COUNT 5.4 10^3/uL (4.0-10.5)
[2020-10-28 11:33] LABS: INTERNATIONAL RATION (INR) 0.94; PROTHROMBIN TIME 12.8 SEC (11.4-15.4)
[2020-10-28 11:44] LABS: ALBUMIN 4.2 g/dL (3.5-5.0); ALKALINE PHOSPHATASE 85 U/L (38-126); ANION GAP 7 (5-19); ASPARTATE AMINO TRANSFERASE 28 U/L (14-36); BILIRUBIN,TOTAL 0.6 mg/dL (0.2-1.3); BLOOD UREA NITROGEN 20 mg/dL (7-20); CALCIUM 9.4 mg/dL (8.4-10.2); CARBON DIOXIDE 26 mmol/L (22-30); CHLORIDE 106 mmol/L (98-107); GLUCOSE 116 mg/dL (75-110); POTASSIUM 4.3 mmol/L (3.6-5.0); TOTAL PROTEIN 7.5 g/dL (6.3-8.2)
--- NOTE | 2020-10-28 11:58 | RADIOLOGY REPORT (SQ) ---
EXAM DESCRIPTION: CHEST SINGLE VIEW IMAGES COMPLETED DATE/TIME: 10/28/2020 11:30 am REASON FOR STUDY: facial numbness this morning, hx of CVA COMPARISON: None. EXAM PARAMETERS: NUMBER OF VIEWS: One view. TECHNIQUE: Single frontal radiographic view of the chest acquired. RADIATION DOSE: NA LIMITATIONS: None. FINDINGS: LUNGS AND PLEURA: No opacities, masses or pneumothorax. No pleural effusion. MEDIASTINUM AND HILAR STRUCTURES: No masses. Contour normal. HEART AND VASCULAR STRUCTURES: Heart normal in size. Normal vasculature. BONES: No acute findings. Decreased mineralization. HARDWARE: None in the chest. OTHER: No other significant finding. IMPRESSION: Mild linear lingular opacities, possibly atelectasis or scarring. TECHNICAL DOCUMENTATION: JOB ID: [id number] 2010 [employer]- All Rights Reserved Reading location - IP/workstation name: [email or web address]
[2020-10-28] MEDS ORDERED: NORMAL SALINE 1000 ML 1,000 ML IV ONE (12:10)
--- NOTE | 2020-10-28 13:11 | EKG REPORT ---
SEVERITY:- BORDERLINE ECG - SINUS RHYTHM PROBABLE LEFT ATRIAL ABNORMALITY LEFT AXIS DEVIATION : Confirmed by: Bola Lazo MD 28-Oct-2020 13:10:53
--- NOTE | 2020-10-28 14:05 | ER Document Report ---
Entered by JOHNATHAN FLORES SCRIBE 10/28/20 1209 Acting as scribe for:YOKO HOLILNGSWORTH MD ED Neuro Symptoms/Deficit - General Chief Complaint: Numbness of Face Stated Complaint: HAND NUMBNESS Time Seen by Provider: 10/28/20 10:55 Primary Care Provider: CANDELARIO AVERY FNP-C [NURSE PRACTITIONER] - Follow up as needed Mode of Arrival: Wheelchair Information source: Patient Notes: This 79 year old female patient with a history of posterior circulation TIA in 2018 presents to the ED today with complaints of on and off bilateral hand numbness and tingling that started x3 days ago. Patient states that it is worse on her left hand, particularly in her first 3 digits. She also reports a headache that makes her feel "loopy" and like she is going to pass out. She mentions that she had a syncopal episode x2 days ago while she was cleaning; she states that she didn't black out, but she found herself on the floor and sustained a skin tear to her right elbow. Denies any other complaints. TRAVEL OUTSIDE OF THE [place] IN LAST 30 DAYS: No - Related Data Allergies/Adverse Reactions: Iodinated Contrast Media Allergy (Verified 10/28/20 12:02) Sulfa (Sulfonamide Antibiotics) Allergy (Verified 10/28/20 12:02) wasps Allergy (Uncoded 10/28/20 12:02) Past Medical History - General Information source: Patient, [facility] Records - Social History Smoking Status: Never Smoker Cigarette use (# per day): No Chew tobacco use (# tins/day): No Smoking Education Provided: No Frequency of alcohol use: None Drug Abuse: None Family History: Reviewed & Not Pertinent - Past Medical History Cardiac Medical History: Reports: Hx Coronary Artery Disease, Hx DVT - History of DVT in the left lower extremity in 1977, Hx Hypercholesterolemia Comment Only: Hx Hypertension - ON MEDS D/T TIA Neurological Medical History: Reports: Hx Cerebrovascular Accident - posterior circulation TIA in 2018 @[facility] Musculoskeletal Medical History: Reports Hx Arthritis Past Surgical History: Reports: Hx Hysterectomy, Hx Orthopedic Surgery - bilateral hip replacement, Hx Tonsillectomy, Hx Vascular Surgery - IVC filter - Immunizations Hx Diphtheria, Pertussis, Tetanus Vaccination: Yes - NOT UP-TO-DATE Review of Systems - Review of Systems Constitutional: No symptoms reported EENT: No symptoms reported Cardiovascular: See HPI, Syncope Respiratory: No symptoms reported Gastrointestinal: No symptoms reported Genitourinary: No symptoms reported Female Genitourinary: No symptoms reported Musculoskeletal: No symptoms reported Skin: No symptoms reported Hematologic/Lymphatic: No symptoms reported Neurological/Psychological: See HPI, Headaches, Numbness, Tingling -: Yes All other systems reviewed and negative Physical Exam - Vital signs Vitals: Resp Pulse Ox 22 H 96 10/28/20 11:05 10/28/20 11:05 - General General appearance: Alert In distress: None - HEENT Head: Normocephalic, Atraumatic Eyes: Normal Extraocular movements intact: Yes Pupils: PERRL Neck: Normal, Supple - Respiratory Respiratory status: No respiratory distress Chest status: Nontender Breath sounds: Normal Chest palpation: Normal - Cardiovascular Rhythm: Regular Heart sounds: Normal auscultation Murmur: No Friction rub: No Gallop: None auscultated - Abdominal Inspection: Normal Distension: No distension Bowel sounds: Normal Tenderness: Nontender - Abdomen soft Organomegaly: No organomegaly - Back Back: Normal, Nontender - Extremities General upper extremity: Normal inspection General lower extremity: Normal inspection. No: Edema - Neurological Neuro grossly intact: Yes Cognition: Normal Orientation: AAOx4 Alan Coma Scale Eye Opening: Spontaneous Alan Coma Scale Verbal: Oriented [place] Coma Scale Motor: Obeys Commands Alan Coma Scale Total: 15 Speech: Normal - Speech is rapid and clear Cranial nerves: Normal. No: Sensory deficit Additional motor exam normals: Other - No motor deficits Notes: Possible positive phalen's and tinel's test - Psychological Associated symptoms: Normal affect, Normal mood - Skin Skin Temperature: Warm Skin Moisture: Dry Skin Color: Normal Skin irregularity: other - There is a old skin tear on the right lateral elbow Course - Re-evaluation Re-evalutation: 10/28/20 16:32 The patient is not a TPA candidate. Her primary symptoms were vague intermittent bilateral hand numbness over several days. There were no motor or sensory deficits, and no cognitive deficits, no speech deficits on physical exam. She described what sounded like 1 episode of orthostatic syncope. - Vital Signs Vital signs: Temp Pulse Resp BP Pulse Ox 97.9 F 74 23 H 164/84 H 97 10/28/20 15:08 10/28/20 11:51 10/28/20 15:00 10/28/20 14:57 10/28/20 15:00 - Laboratory Results Result Diagrams: 10/28/20 11:15 10/28/20 11:15 Laboratory Results Interpreted: 10/28/20 10/28/20 11:15 11:15 Lymph % (Auto) 52.5 H Seg Neutrophils % 33.2 L Glucose 116 H Critical Laboratory Results Reviewed: No Critical Results - Radiology Results Radiology Results Interpreted: 10/28/20 16:39 MRI of the head shows some chronic sinus disease but no acute abnormality. Critical Radiology Results Reviewed: No Critical Results - EKG Interpretation by Me EKG shows normal: Sinus rhythm, [place], Intervals, QRS Complexes, ST-T Waves Rate: Normal - 73 Rhythm: NSR [place]/QRS: Left axis deviation P Waves: LAE Discharge - Discharge Clinical Impression: Paresthesia of both hands, Sinus disease Episode of syncope Qualifiers: Syncope type: unspecified Qualified Code(s): R55 - Syncope and collapse Condition: Stable Disposition: HOME, SELF-CARE Additional Instructions: Carpal Tunnel Syndrome Your examination suggests carpal tunnel syndrome. This syndrome is due to pressure on a nerve in the wrist. The pressure may be caused by an old injury, hard work using the wrist, work involving repeated motions of the hand, wrist positions that keep pressure on the joint, or arthritis in the wrist. Typical symptoms are tingling, numbness, and pain in the palm, thumb, index and middle fingers, and one side of the ring finger. Often a splint, ice packs, and antiinflammatory medication make the symptoms go away. If the physician feels that your problem is chronic, you will be referred to a specialist for further care. If symptoms do not go away, carpal tunnel syndrome may require surgery. You should call the doctor if pain increases, if you develop difficulty using the thumb or fingers, or if major swelling occurs. Syncopal Episode Syncope (fainting or near-fainting) can occur from many different health problems. Or it can be a simple fainting spell requiring no treatment. It is safe for you to go home, but further evaluation will likely be necessary. Your work-up may include tests for internal bleeding, heart disease, medication problems, or near-strokes. Tests are not always required, however, depending on the nature of your problem. The warning signs of an impending faint include: dizziness, lightheadedness, nausea, hot flashes, tingling, and weakness. If this happens, lay down and put your feet up, then wait until all of these symptoms have passed before standing up again. If these episodes become recurrent, or if you develop chest pain, heart palpitations, mental confusion, blurred vision, or headache, then you should call the physician, or go to the emergency room. The MRI of your brain did not show any acute abnormalities. It did show chronic sinus disease but that would not be responsible for any of your symptoms today. Your history and exam suggest that the numbness in your hands is most likely due to carpal tunnel syndrome. There is no clear explanation for your episode of passing out. For now you should drink plenty of fluids and get plenty of rest. If the hands going numb is more of a problem at nighttime, then wearing wrist splints may help. You should follow-up with your primary care provider to review the symptoms you have been having. RETURN TO THE EMERGENCY ROOM IF ANY NEW OR WORSENING SYMPTOMS. Referrals: CANDELARIO AVERY, OTIS-C [NURSE PRACTITIONER] - Follow up as needed I personally performed the services described in the documentation, reviewed and edited the documentation which was dictated to the scribe in my presence, and it accurately records my words and actions.
[2020-10-28] MEDS ORDERED: ACETAMINOPHEN 325 MG TABLET PO ONE (14:45)
[2020-10-28 15:45] LABS: APPEARANCE,URINE CLEAR; BILIRUBIN,URINE NEGATIVE (NEGATIVE); COLOR,URINE STRAW; GLUCOSE, URINE NEGATIVE (NEGATIVE); KETONES,URINE NEGATIVE (NEGATIVE); LEUKOCYTE ESTERASE,URINE NEGATIVE (NEGATIVE); NITRITE,URINE NEGATIVE (NEGATIVE); PROTEIN,URINE NEGATIVE (NEGATIVE); URINE SPECIFIC GRAVITY 1.006; UROBILINOGEN,URINE NEGATIVE mg/dL (<2.0)
--- NOTE | 2020-10-28 16:42 | RADIOLOGY REPORT (SQ) ---
EXAM DESCRIPTION: MRI HEAD WITHOUT IMAGES COMPLETED DATE/TIME: 10/28/2020 1:18 pm REASON FOR STUDY: Dizzy, near syncope, prior post circulation TIA COMPARISON: CT head same day TECHNIQUE: Multiplanar imaging includes non-contrasted T1, T2, FLAIR, and diffusion with ADC map seq uences. Images stored on PACS. LIMITATIONS: None. FINDINGS: ANATOMY: No anomalies. Normal vascular flow voids. Pituitary fossa normal. CSF SPACES: Atrophy induced prominence of ventricles and CSF spaces. CEREBRUM: High signal intensity lesions scattered throughout the white matter on FLAIR imaging with d istribution suggesting micro-vascular ischemic changes. No evidence of hemorrhage, mass, or extraaxi al fluid collection. POSTERIOR FOSSA: No signal alteration. No hemorrhage. No edema, masses or mass effect. Internal mars tory canals, cerebello-pontine angles, mastoids normal. DIFFUSION IMAGING: Negative for acute or sub-acute infarction. ORBITS: No masses. Globes normal. PARANASAL SINUSES: Opacification of the right sphenoid sinus with air-fluid level demonstrated. The re is some mild mucosal thickening involving the left sphenoid sinus and bilateral ethmoid air cells. OTHER: No other significant finding. IMPRESSION: 1. No acute intracranial abnormality on noncontrast MRI of the brain. 2. Chronic small vessel ischemic changes and diffuse parenchymal atrophy. 3. Paranasal sinus inflammatory changes, most pronounced in the right sphenoid sinus. EVIDENCE OF ACUTE STROKE: NO. TECHNICAL DOCUMENTATION: JOB ID: [id number] [employer]- All Rights Reserved Reading location - IP/workstation name: [email or web address]
[2020-10-28 17:47] VITALS: BP 147/82
== END 2020-10-28 17:47 | disposition home or self-care (01) ==
LOC: ER 10:54
DX: R55 Syncope and collapse (principal); R20.0 Anesthesia of skin; J32.9 Chronic sinusitis, unspecified; Z88.2 Allergy status to sulfonamides; Z90.710 Acquired absence of both cervix and uterus; Z86.73 Personal history of transient ischemic attack (TIA), and cerebral infarction without residual deficits
CPT/HCPCS: 93005; 99285; 96360; 36415; 85025; 85610; 80053; 81001; 84484; 70551; 71045; 70450; 93010; A9270; J7030